=== PATIENT | male | born 1990 | race Caucasian/White ===

== ENCOUNTER 2021-05-20 11:37 | Emergency (ER) | payer MEDICAID, SELFPAY ==
[2021-05-20 11:52] VITALS: BP 112/69; PULSE 64; RESP 18; TEMP 36.7; O2SAT 96; BMI 25.8
[2021-05-20] MEDS: Lidocaine HCl 2 % MPF 5 ML VIAL SUBCUT (12:02)
--- NOTE | 2021-05-20 12:16 | ED_ITS ---
HPI - Extremity Problem General Chief complaint: Extremity Injury, Upper Stated complaint: finger injury Time Seen by Provider: 05/20/21 11:49 Source: patient Mode of arrival: ambulatory History of Present Illness HPI Narrative: 30 y.o. M with no significant PMH presenting to the ED with left 5th digit injury. He states he was trying to help his mother move furniture when he injured his 5th digit of his left hand. He tried using needle clip to puncture his nail bed to relieve the pressure but was unsuccessful. He denies loss of mobility or sensation. NO other injuries. Related Data Allergies Allergy/AdvReac Type Severity Reaction Status Date / Time No Known Allergies Allergy Unverified 06/15/20 17:27 Review of Systems 2 Constitutional: Constitutional: Denies fever(s) Eyes: Eyes: Reports no additional eye complaints ENT: Reports system reviewed and no additional complaints, except as documented and Denies dizziness Cardiovascular: Cardiovascular: Denies chest pain and Denies dyspnea Respiratory: Respiratory: Denies dyspnea Gastrointestinal: Gastrointestinal: Denies abdominal pain Musculoskeletal: Comments: left finger injury Neurologic: Denies dizziness Hematologic/Lymphatic: Hematologic/Lymphatic: Denies easy bleeding [facility] Past Medical History Medical History (Updated 05/20/21 @ 12:17 by JACQUI Peters) No known health problems Social History Social History (Updated 05/20/21 @ 12:20 by JACQUI Peters) Household Members Other:: lives with relatives Advance Directives: No Advance Directives Information Provided: No Physical Exam Vital Signs: Vital Signs: Last Vital Signs Temp 98.0 F 05/20/21 11:52 Pulse 64 05/20/21 11:52 Resp 18 05/20/21 11:52 BP 112/69 05/20/21 11:52 Pulse Ox 96 05/20/21 11:52 Body Mass Index 25.8 Const: Other: sitting upright talking on phone Orientation/consciousness: patient oriented x3 HENMT: Head: Yes atraumatic Eyes: Pupils: Equal, round and reactive pupils present Neck: Neck: Yes supple Resp: Effort & Inspection: normal respiratory effort Cardio: Rate: regular rate GI: Inspection: No distended Back/Spine/Pelvis: Other: normal ROM Skin: Rashes: no rashes Neuro: General: patient oriented x3 Cranial nerves: Yes Equal, round and reactive pupils present Extrem: Other: LUE- 5th digit of L hand has a subungual hematoma, no drainage, no surrounding erythema, no fluctuance, sensation intact, full ROM at the DIP, PIP, MCP, compartments soft, neurovascularly intact, no foreign body Psych: Appearance: well kempt MDM - Extremity (Nontraumatic) MDM Narrative Medical decision making narrative: 30 y.o. M presenting to the ED with injury to L 5th digit VS stable, not toxic appearing, hemodynamically stable No indication for xray, he has full ROM at each joint. No evidence of tendon injury. No evidence of infectious process. Pt. will need trephination of his nail bed. I offered digital block vs. no block and pt. requested to perform the procedure without the block. Nail bed was cleansed with alcohol prep and trephination was successful. Instant relief of pain. Return precautions discussed. Discharge Plan Discharge Clinical Impression: Subungual hematoma Patient Disposition: Home, Self-Care Instructions: Subungual Hematoma (ED) Additional Instructions: PLease keep an eye out for redness, fevers, finger swelling, loss of sensation or mobility. Keep area clean and dry.
== END 2021-05-20 12:30 | disposition home or self-care (01) ==
PROVIDERS: Emergency Provider Emergency Medicine
DX: S69.92XA Unspecified injury of left wrist, hand and finger(s), initial encounter (principal); S60.222A Contusion of left hand, initial encounter; M79.642 Pain in left hand; X50.0XXA Overexertion from strenuous movement or load, initial encounter; X50.9XXA Other and unspecified overexertion or strenuous movements or postures, initial encounter; Y93.9 Activity, unspecified; Y92.009 Unspecified place in unspecified non-institutional (private) residence as the place of occurrence of the external cause; Y99.9 Unspecified external cause status
CPT/HCPCS: 99283

== ENCOUNTER 2021-05-22 08:53 | Outpatient (REF) | payer MEDICAID, SELFPAY ==
--- NOTE | ~2021-05-22 | XR_ITS ---
EXAMINATION: XR KNEE, RIGHT CLINICAL INFORMATION: Right knee pain. COMPARISON: None TECHNIQUE: Four views of the right knee. FINDINGS: No significant tricompartmental degenerative joint changes are seen. There is no acute fracture, dislocation or joint effusion. The soft tissues are unremarkable. XR/XR knee RT 4V IMPRESSION: Unremarkable right knee.
[2021-05-22 11:54] LABS: Alanine Aminotransferase 17 U/L (0-40); Albumin Level 4.6 g/dL (3.5-5.0); Alkaline Phosphatase 77 U/L (39-117); Anion Gap 12 (12-20); Aspartate Amino Transferase 21 U/L (5-37); Bilirubin Total 0.5 mg/dL (0.0-1.0); Blood Urea Nitrogen 14 mg/dL (9-16); Calcium 9.7 mg/dL (8.4-10.2); Carbon Dioxide 30 mmol/L (22-29); Chloride 106 mmol/L (96-108); Cholesterol 166 mg/dL; Estimated Glomerular Filt Rate > 60; Glucose Random 89 mg/dL (60-115); HDL Cholesterol 43 mg/dL; LDL Cholesterol Calculated 109 mg/dl; Sodium 143 mmol/L (135-145); Total Protein 7.6 g/dL (6.5-8.0); Triglycerides 72 mg/dL
[2021-05-22 11:59] LABS: HIV AB/AG Nonreactive (Nonreactive); HIV Num 1 0.05 S/CO (0.00-0.99)
[2021-05-22 12:03] LABS: Thyroid Stimulating Hormone 0.72 uIU/mL (0.32-4.0)
== END 2021-05-22 08:54 | disposition home or self-care (01) ==
LOC: HO.LAB 08:53
PROVIDERS: PCP Internal Medicine; Visit Provider Internal Medicine
DX: Z01.89 Encounter for other specified special examinations (principal); Z11.4 Encounter for screening for human immunodeficiency virus [HIV]; B35.3 Tinea pedis; M25.561 Pain in right knee
CPT/HCPCS: 36415; 73564; 80053; 80061; 84443; 87389

== ENCOUNTER 2021-06-14 07:04 | Emergency (ER) | payer MEDICAID, SELFPAY ==
--- NOTE | ~2021-06-14 | XR_ITS ---
EXAMINATION: XR KNEE, RIGHT CLINICAL INFORMATION: Right knee pain COMPARISON: None TECHNIQUE: Four views of the right knee. FINDINGS: The tricompartment joint space is maintained normal. No visible acute fracture, dislocation or bony erosive changes. No abnormal joint effusion seen. The soft tissues are normal. XR/XR knee RT 4V IMPRESSION: Unremarkable right knee exam.
--- NOTE | 2021-06-14 07:17 | ED.EXTPRO ---
HPI - Extremity Problem General Chief complaint: Extremity Injury, Lower Stated complaint: rt knee pain Time Seen by Provider: 06/14/21 07:08 Source: patient Mode of arrival: ambulatory Limitations: no limitations History of Present Illness MD Complaint: extremity pain and joint paint Onset (ago): day(s) (1) Pain Consistency: constant Location: right, upper extremity and knee Quality: aching Radiation: none Relieving factors: nothing Exacerbating factors: weight bearing and palpation Associated symptoms: denies other symptoms Context: other (hit R knee on shelf when he fell off chair direct blow) Related Data Allergies Allergy/AdvReac Type Severity Reaction Status Date / Time No Known Allergies Allergy Unverified 06/15/20 17:27 Review of Systems Review of Systems: Constitutional : No Fever, No Chills Cardiovascular : No Chest Pain, No SOB Respiratory : No Cough, No Dyspnea Musculoskeletal : positive joint pain, No Myalgias, No Joint Swelling Skin : No Skin lacerations, No rash Neuro : No Weakness, No Numbness, No Loss of Consciousness, No Dizziness, No Headache Psych : No Anxiety/Panic, No Depression [facility] Past Medical History Medical History No known health problems Social History Social History (Updated 06/14/21 @ 07:29 by Rona Eubanks DO) Household Members Other:: lives with relatives Alcohol intake: current Alcohol intake frequency: a few times a month Patient Tobacco Use Status: Never used Tobacco Use of substances other than those prescribed or required for medical reasons: Yes Substance Use Type: Marijuana Advance Directives: No Advance Directives Information Provided: No Physical Exam Vital Signs: Vital Signs: Last Vital Signs Temp 97.8 F 06/14/21 07:49 Pulse 60 06/14/21 07:49 Resp 15 06/14/21 07:49 BP 112/64 06/14/21 07:49 Pulse Ox 100 06/14/21 07:49 Body Mass Index 25.0 Appearance: Alert. Oriented X3. No acute distress. Eyes: Pupils equal, round and reactive to light. ENT: Pharynx normal. Neck: Normal inspection. Neck supple. CVS: Normal heart rate and rhythm. Pulses normal. Respiratory: No respiratory distress. Breath sounds normal. Abdomen: Soft and nontender. Skin: Skin warm and dry. Normal skin color. Normal skin turgor. Extremities: R knee ttp along patella quadricep and patella tendon intact, distal NV intact no joint effusion Neuro: Oriented X 3. No motor deficit. No sensory deficit. MDM - Extremity (Nontraumatic) MDM Narrative Medical decision making narrative: 30 yo male with blow to R knee c/o patella pain distal NV intact - no joint effusion will obtain xrays to r/o fracute though likely contusion Discharge Plan Discharge Clinical Impression: Contusion of right patella Qualifiers: Encounter type: initial encounter Qualified Code(s): S80.01XA - Contusion of right knee, initial encounter Patient Disposition: Home, Self-Care Instructions: Bone Bruise (ED) Additional Instructions: return to ED for any worsening symptoms or concerns wear tushar wrap as needed for comfort take tylenol or motrin for pain NO BROKEN BONES ON XRAY JUST A BRUISE Stand Alone Forms: Work/School Release
[2021-06-14 07:38] VITALS: BMI 25.0
[2021-06-14 07:49] VITALS: BP 112/64; PULSE 60; RESP 15; TEMP 36.6; O2SAT 100
== END 2021-06-14 08:14 | disposition home or self-care (01) ==
PROVIDERS: Emergency Provider Emergency Medicine; PCP Internal Medicine
DX: S80.01XA Contusion of right knee, initial encounter (principal); M25.561 Pain in right knee; F12.90 Cannabis use, unspecified, uncomplicated; Y29.XXXA Contact with blunt object, undetermined intent, initial encounter; Y93.9 Activity, unspecified; Y92.9 Unspecified place or not applicable; Y99.9 Unspecified external cause status
CPT/HCPCS: 73564; 99283; 99284

== ENCOUNTER 2021-06-21 17:00 | Outpatient (RCR) | payer MEDICAID, SELFPAY | END 2021-06-25 18:02 | disposition home or self-care (01) | LOC: HO.PTCHIC 17:00 | PROVIDERS: PCP Internal Medicine; Visit Provider Internal Medicine | DX: M25.561 Pain in right knee (principal) | CPT/HCPCS: 97110; 97140; 97161 ==

== ENCOUNTER 2024-03-29 14:54 | Outpatient (REF) | payer SELFPAY ==
[2024-03-29 18:24] LABS: Alanine Aminotransferase 20 U/L (0-40); Albumin Level 4.6 g/dL (3.5-5.0); Alkaline Phosphatase 75 U/L (39-117); Anion Gap 11 (12-20); Aspartate Amino Transferase 24 U/L (5-37); Bilirubin Total 0.4 mg/dL (0.0-1.0); Blood Urea Nitrogen 17 mg/dL (9-16); Calcium 9.7 mg/dL (8.4-10.2); Carbon Dioxide 29 mmol/L (22-29); Chloride 105 mmol/L (96-108); Cholesterol 180 mg/dL (<200); Estimated Glomerular Filt Rate > 60; Glucose Random 69 mg/dL (60-115); HDL Cholesterol 42 mg/dL (>40); LDL Cholesterol Calculated 100 mg/dL (<100); Sodium 141 mmol/L (135-145); Total Protein 7.7 g/dL (6.5-8.0); Triglycerides 191 mg/dL (<150)
[2024-03-29 18:41] LABS: TSH reflex Free T4 1.26 uIU/mL (0.32-4.0)
[2024-03-30 07:27] LABS: HIV AB/AG Nonreactive (Nonreactive); HIV Num 1 0.05 S/CO (0.00-0.99); ~HepC Num1 0.11 S/CO (0.00-0.79); ~Hepatitis C Antibody Nonreactive (Nonreactive)
[2024-03-31 10:58] LABS: RPR Rapid Plasma Reagin NON-REACTIVE (NON-REACTIVE)
== END 2024-03-29 14:55 | disposition home or self-care (01) ==
LOC: HO.CHCLDS 14:54
PROVIDERS: Visit Provider Internal Medicine
DX: Z00.00 Encounter for general adult medical examination without abnormal findings (principal); Z11.3 Encounter for screening for infections with a predominantly sexual mode of transmission
CPT/HCPCS: 36415; 80053; 80061; 84443; 86592; 86803; 87389

== ENCOUNTER 2024-04-02 11:10 | Outpatient (REF) | payer MEDICAID, SELFPAY ==
--- NOTE | ~2024-04-02 | XR_ITS ---
EXAMINATION: XR KNEE, RIGHT CLINICAL INFORMATION: Bilateral knee pain. COMPARISON: None available. TECHNIQUE: Two views of the right knee. FINDINGS: No acute fracture or joint effusion appreciated. Alignment is anatomic. Joint spaces appear maintained. No significant abnormal soft tissue calcification identified. XR/XR knee RT 2V IMPRESSION: Unremarkable plain film examination of the right knee.
--- NOTE | ~2024-04-02 | XR_ITS ---
EXAMINATION: XR KNEE, LEFT CLINICAL INFORMATION: Bilateral knee pain. COMPARISON: None available. TECHNIQUE: Two views of the left knee. FINDINGS: No acute fracture or joint effusion appreciated. Alignment is anatomic. Joint spaces appear maintained. No significant abnormal soft tissue calcification identified. XR/XR knee LT 2V IMPRESSION: Unremarkable plain film examination of the left knee.
== END 2024-04-02 11:11 | disposition home or self-care (01) ==
LOC: HO.XRAY 11:10
PROVIDERS: PCP Internal Medicine; Visit Provider Internal Medicine
DX: M25.561 Pain in right knee (principal); M25.562 Pain in left knee; G89.29 Other chronic pain
CPT/HCPCS: 73560

== ENCOUNTER 2025-05-04 10:56 | Outpatient (REF) | payer MEDICAID, SELFPAY ==
--- OUTSIDE RECORDS SUMMARY | 2025-05-04 11:38 | XMS_ITS | Clinical Summary ---
Author Organization [employer] Address [address] [place] [address] Care Team Providers Care Surfacer Name Role Phone Laurita Alvarez MD Primary Care Provider Allergies No known active allergies Medications Diclofenac Sodium 1 % gelIndications: Chronic pain of both knees To apply to the affected area 3 times a day 100 g 4 Active tacrolimus (Protopic) 0.03 % ointmentIndicat ions:Lichen striatus Apply topically 2 times daily. 30 g 4 06/08/20 25 Active terbinafine (LamISIL) 250 MG tabletIndicatio ns:Intertrigo of web of toe Take 1 tablet (250 mg) by mouth Once per day for 14 days. 14 tablet 5 05/18/20 25 Active nystatin (Nystop) 632233 UNIT/GM powderIndicatio ns:Intertrigo of web of toe Apply topically 2 times daily. 30 g 5 05/04/20 26 Active Active Problems Problem Noted Date Diagnosed Date Injury of right hand 03/10/2018 Encounters Date Type Department Care Team Description 05/04/2025 10:00 AM EDT Office Visit [facility] [address] [place] [address] Laurita Alvarez MD Annual physical exam (Primary Dx); Lichen striatus; Screen for STD (sexually transmitted disease); Seasonal allergies; Chronic left shoulder pain; Hypertriglyceridemia ; Intertrigo of web of toe 05/04/2025 Travel 05/03/2025 Telephone [facility] [address] [place] [address] Laurita Alvarez MD Chart Prep 04/27/2025 Patient Outreach [facility] [address] [place] [address] Laurita Alvarez MD Pre-visit Planning (Pre visit planning LVM ) from Last 3 Months Immunizations Immunization Administration Dates Next Due DTaP 05/18/1998, 4,07/24/1993,05/29,03/06/1993 HPV 9-Valent 09/10/2012 HPV, Unspecified 03/11/2013,11/10/2012 Hep A, ped/adol, 2 dose 04/23/2011 Hep B, adult 10/19/1993,01/29/1993,1992 HiB, unspecified 03/19/1994,05/29/1993 Hib (PRP-T) 07/24/1993,03/06/1993 IPV 05/18/1998, 4,07/24/1993,05/29,03/06/1993 Influenza injectable quadriv alent IIV4 with preservative 08/30/2008 Influenza injectable quadriv alent preservative free 09/10/2012,01/02/2010 Influenza, trivalent, adjuvanted 09/07/2020 MMR 05/18/1998,03/19/1994 Meningococcal MCV4P [id number] 02/02/2008 Moderna Covid-19 Vaccine 12+ 11/14/2020,10/19/19 21 TD (adult), 2 Lf tetanus tox oid, preservative free, adsorbed 10/22/2017 Td (adult), 5 Lf tetanus tox oid, preservative free, adsorbed 01/29/2017,12/15/2003 Tdap 02/02/2008 Family History Medical History Relation Name Comments Hyperlipidemia Father Hypertension Father Migraines Mother No Known Problems Paternal Grandmother Relation Name Status Comments Father Mother Paternal Grandmother Social History Tobacco Use Types Packs/Day Years Used Date Smoking Tobacco: Never Passive Smoke Exposure: Never Smokeless Tobacco: Never Tobacco Cessation:Counseling Given: Not Answered Alcohol Use Standard Drinks/Week Comments Not Currently 0 (1 standard drink = 0.6 oz pur e alcohol) Alcohol Answer Date Recorded How often do you have a drink containing alcohol ? 1 05/04/2025 How many drinks containing a lcohol do you have on a typical day when you are drinking? 1 05/04/2025 How often do you have six or more drinks on one occasion? 0 05/04/2025 Depression Answer Date Recorded Patient Health Questionnaire-9 Score 0 05/04/2025 Patient Health Questionnaire-9 Score 0 05/04/2025 Last PHQ-9: Questionnaire Data Not on file 0 05/04/2025 Housing Stability Answer Date Recorded What is your housing situation today? I have kirk fritz 05/04/[address] you li ve. Do you have problems with any of the following? None of the above 05/04/2025 Food Insecurity Answer Date Recorded Within the past 12 months, y ou worried that your food would run out before you got money to buy more: Never True 05/04/2025 Within the past 12 months,th e food you bought just didn't last and you didn't have enough money to get more: Never True 02/2025 Transportation Answer Date Recorded In the past 12 months, has l ack of transportation kept you from medical appts, meetings, work or from getting things needed for daily living? No 05/04/2025 Utilities Answer Date Recorded In the past 12 months, has t he electric, gas, oil or water company threatened to shut off services in your home? No 05/04/2025 Depression Answer Date Recorded Patient Health Questionnaire-2 Score 0 05/04/2025 Internet Access Answer Date Recorded Internet Access Q1 No 05/31/2024 Internet Access Q2 I do not want or need it 10/2023 Sex and Gender Information Value Date Recorded Sex Assigned at Male 07/29/2022 10:31 AM EDT Legal Sex Male 10:31 AM EDT Gender Identity Male 07/29/2022 10:31 AM EDT Sexual Orientation Don't know 07/29/2022 10 :31 AM EDT Last Filed Vital Signs Vital Sign Reading Time Taken Comments Blood Pressure 127/73 05/04/2025 10:15 AM EDT Pulse 52 05/04/2025 10:15 AM EDT Temperature 36.6 C (97.9 F) 05/04/2025 10:15 AM EDT Respiratory Rate 20 05/04/2025 10:15 AM EDT Oxygen Saturation 98% 05/04/2025 10:15 AM EDT Inhaled Oxygen Concentration - - Weight 80.3 kg (177 lb) 05/04/2025 10:15 AM EDT Height 167.6 cm (5' 6 ) 05/04/2025 10:15 AM EDT Body Mass Index 28.57 05/04/2025 10:15 AM EDT Plan of Treatment Health Maintenance Due Date Last Done Comments Disability Screening 1992 Family Planning (PISQ) 12/20/2007 Hepatitis A Vaccines (2 of 2 - 2-dose series) 10/24/2011 04/23/2011 COVID-19 Vaccine ( season) 2024 11/14/2020, 10/19/2020 SDOH Screening 03/22/2025 03/22/2024 Influenza Vaccine (#1) 2025 , 09/10/2012, 01/02/2010, Additional history exists Alcohol/Substance Use Screening 05/04/2026 05/04/2025 Depression Screening 05/04/2026 05/04/2025, 05/04/20 25 Tobacco Screening 05/04/2026 05/04/2025 DTaP/Tdap/Td Vaccines (9 - Td or Tdap) 10/22/2027 10/22/2017, 01/29/2017, 02/02/2008, Additional history exists Zoster Vaccines (1 of 2) 2042 RSV Patients and Patients Aged 60 years or older (1 - 1-dose 75+ series) 12/20/2067 Hepatitis B Vaccines Completed 10/19/1993, 01/29/1993, 1992 HIB Vaccines Completed 03/19/1994, 06/30, 05/29/1993, Additional history exists IPV Vaccines Completed 05/18/1998, 06/29, 07/24/1993, Additional history exists Meningococcal Vaccine Aged Out 02/02/2008 No fish camille eligible based on patient's age to complete this topic HPV Vaccines Completed 03/11/2013, 10/30, 09/10/2012 HIV Screening Completed 03/29/2024, 05/22/2021 Hepatitis C Screening Completed 03/29/2024 Meningococcal B Vaccine Aged Out No l onger eligible based on patient's age to complete this topic Pneumococcal Vaccine: Pediatrics (0 to 5 Years) and At-Risk Patients (6 to 49) Years Aged Out No longer eligible based on patient's age to complete this topic RSV under 20 months Aged Out No longe r eligible based on patient's age to complete this topic Rotavirus Vaccines Aged Out No longer eligible based on patient's age to complete this topic Procedures Procedure Name Priority Date/Time Associated Diagnosis Comments HEPATITIS C AB W/REFL TO HCV RNA, QN, PCR Routine 03/29/2024 3:03 PM EDT Annual physical exam Screen for STD (sexually transmitted disease) HIV 1/2 ANTIGEN/ANTIBODY, FOURTH GENERATION W/RFL Routine 03/29/2024 3:03 PM EDT Annual physical exam Screen for STD (sexually transmitted disease) from Last 3 Months or Most Recently Relevant to Health Maintenance Results * Hepatitis C Antibody with Reflex to HCV, RNA, Quantitative, Real-Time PCR (03/29/2024 3:03 PM EDT) Hepatitis C Antibody Nonreactive Nonreactive [facility] Comment:Antibodies to HCV no t detected; does not exclude early acuteHCV infection. Blood Venous blood specimen / Unknown 03/29/2024 3:03 PM EDT 03/29/2024 5:56 PM EDT Laurita Alvarez MD LAB BLOOD ORDERABLES Final Result [facility] [place] [address] [phone] * HIV-1/2 Antigen and Antibodies, Fourth Generation, with Reflexes (03/29/2024 3:03 PM EDT) HIV AB/AG Nonreactive Nonreactive [facility] Comment:HIV-1 p24 Ag and/or HIV-1/HIV-2 Ab not detected.A test result that is nonreactive does not exclude thepossibility of exposure to or infection with HIV-1 and/orHIV-2. Nonreactive results in this assay for individualswith prior exposure to HIV-1 and/or HIV-2 may be due toantigen and antibody levels that are below the limit ofdetection of this assay.The [employer] Alinity HIV Ag/Ab Combo assay result andsupplemental assay results should be interpreted inconjunction with the patient's clinical presentation,history and other laboratory results. If the results areinconsistent with clinical evidence, additional testing issuggested to confirm the result. Blood Venous blood specimen / Unknown 03/29/2024 3:03 PM EDT 03/29/2024 5:56 PM EDT us Laurita Alvarez MD LAB BLOOD ORDERABLES Final Result [facility] [address] [place] [phone] from Last 3 Months or Most Recently Relevant to Health Maintenance Insurance [facility] [employer] [id number] [id number] [id number] Care Teams Surfacer Relationship Specialty Start Date End Date Laurita Alvarez MD [address] [place] [address] [place] [id number] PCP - General Internal Medicine 02/21/22
[2025-05-04 14:22] LABS: Appearance Urine Clear; Glucose Urine UA Negative (Negative); PH 6.0 (5.0-9.0); Specific Gravity - Urine 1.025 (1.005-1.025)
[2025-05-04 14:48] LABS: Cholesterol 166 mg/dL (<200); HDL Cholesterol 41 mg/dL (>40); Triglycerides 146 mg/dL (<150)
[2025-05-05 08:10] LABS: HIV Num 1 0.05 S/CO (0.00-0.99); ~HepC Num1 0.13 S/CO (0.00-0.79); ~Hepatitis C Antibody Nonreactive (Nonreactive)
== END 2025-05-04 10:57 | disposition home or self-care (01) ==
LOC: HO.CHCLDS 10:56
PROVIDERS: Visit Provider Internal Medicine
DX: Z11.3 Encounter for screening for infections with a predominantly sexual mode of transmission (principal); Z11.59 Encounter for screening for other viral diseases; E78.1 Pure hyperglyceridemia
CPT/HCPCS: 36415; 80061; 81003; 86592; 86803; 87389